=== PATIENT | female | born 1970 | race Caucasian/White ===

== ENCOUNTER 2017-07-11 14:06 | Emergency (ER) | payer OTHER ==
[~2017-07-11] VITALS: Ht 165.1 cm; Wt 70.8 kg
[~2017-07-11 14:06] MED LIST: HYDR1TAB PO
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
[2017-07-11] MEDS ORDERED: SILVER SULFADIAZINE CREAM 25 GM TUBE ONE (14:54)
[2017-07-11] MEDS ORDERED: IBUPROFEN 600 MG TABLET PO ONE ×2 (14:54→15:00)
[2017-07-11] MEDS ORDERED: ACETAMINOPHEN ES 500 MG TABLET ONE (14:54)
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
[2017-07-11] MEDS ORDERED: ACETAMINOPHEN ES 500 MG TABLET PO ONE (15:00)
[2017-07-11] MEDS ORDERED: SILVER SULFADIAZINE CREAM 25 GM TUBE TOP ONE (15:00)
--- NOTE | 2017-07-11 15:24 | NUR ---
Patient discharged to home in stable condition. Written and verbal after care instructions given. Patient verbalizes understanding of instruction.
[2017-07-11 15:26] VITALS: BP 148/92
== END 2017-07-11 15:27 | disposition home or self-care (01) ==
LOC: ER 14:09
DX: S20.212A Contusion of left front wall of thorax, initial encounter (principal); R10.13 Epigastric pain; F17.200 Nicotine dependence, unspecified, uncomplicated; M54.30 Sciatica, unspecified side; Z90.89 Acquired absence of other organs; V49.49XA Driver injured in collision with other motor vehicles in traffic accident, initial encounter; Y93.89 Activity, other specified; Y92.413 State road as the place of occurrence of the external cause; Y99.8 Other external cause status
CPT/HCPCS: 71045; 93005; 99284; 99406; A4606; Z7610